=== PATIENT | female | born 1965 | race American Indian/Alaskan Native ===

== ENCOUNTER 2020-04-04 14:44 | Emergency (ER) | payer OTHER ==
[2020-04-04 16:03] VITALS: BP 137/97
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
[2020-04-04] MEDS ORDERED: ACETAMINOPHEN 500 MG TAB PO ONE (19:36)
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
== END 2020-04-04 21:30 | disposition home or self-care (01) ==
LOC: ED 14:44
DX: S83.91XA Sprain of unspecified site of right knee, initial encounter (principal); S20.219A Contusion of unspecified front wall of thorax, initial encounter; M62.838 Other muscle spasm; J45.909 Unspecified asthma, uncomplicated; V89.2XXA Person injured in unspecified motor-vehicle accident, traffic, initial encounter; Y93.89 Activity, other specified; Y92.410 Unspecified street and highway as the place of occurrence of the external cause; Y99.8 Other external cause status
CPT/HCPCS: 70450; 71046; 72125; 99284